=== PATIENT | female | born 1990 | race African-American/Black ===

== ENCOUNTER 2017-11-27 13:03 | Emergency (ER) | payer OTHER, MEDICAID ==
[~2017-11-27] VITALS: Ht 157.5 cm; Wt 59.0 kg
[2017-11-27] MEDS ORDERED: ZOLOFT50 MG PO (13:24)
[2017-11-27] MEDS ORDERED: ZANTAC 150MG T150 MG PO (13:24)
[2017-11-27] MEDS ORDERED: MAGNESIUM OXID200 MG PO (13:24)
[2017-11-27] MEDS ORDERED: LIORESAL 10 MG10 MG PO (13:24)
[2017-11-27] MEDS ORDERED: MIRALAX17 GM PO (13:24)
[2017-11-27 13:49] LABS: ABSOLUTE BASOPHILS 0.1 thou/uL (0.0-0.2); ABSOLUTE EOSINOPHILS 0.5 thou/uL (0.0-0.7); ABSOLUTE LYMPHOCYTES 1.8 thou/uL (0.8-5.3); ABSOLUTE MONOCYTES 0.6 thou/uL (0.0-1.2); ABSOLUTE NEUTROPHILS 4.6 thou/uL (1.6-8.1); BASOPHILS 1.5 %; EOSINOPHILS 6.4 %; HEMATOCRIT 45.2 % (37.0-47.0); HEMOGLOBIN 15.3 gm/dL (12.0-15.0); LYMPHOCYTES 24.1 %; MCH 29.9 pg (26.0-34.0); MCHC 33.8 g/dL (28.0-37.0); MCV 88.5 fL (80.0-100.0); MONOCYTES 7.6 %; MPV 8.8 fl. (7.2-11.1); NUCLEATED RBCS 0 /100WBC; PLATELET COUNT* 266 thou/uL (150-400); POLYS 60.4 %; RBC 5.11 mil/uL (4.20-5.00); RDW-CV 14.1 % (10.5-14.5); WBC 7.7 thou/uL (4.0-11.0)
[2017-11-27 13:53] LABS: URINE BILIRUBIN NEGATIVE (Negative); URINE BLOOD NEGATIVE (Negative); URINE CLARITY CLEAR; URINE COLOR YELLOW; URINE GLUCOSE-RANDOM NEGATIVE (Negative); URINE KETONES NEGATIVE (Negative); URINE LEUKOCYTES NEGATIVE (Negative); URINE NITRITE NEGATIVE (Negative); URINE PROTEIN NEGATIVE (Negative); URINE SPECIFIC GRAVITY <= 1.005 (1.005-1.030); URINE UROBILINOGEN 0.2 E.U./dl (0.2-1.0)
[2017-11-27 13:57] LABS: CALCIUM 9.4 mg/dL (8.5-10.1); CREATININE 0.7 mg/dL (0.6-1.3); POTASSIUM 4.6 mmol/L (3.5-5.1)
[2017-11-27 14:01] LABS: ALBUMIN 4.6 g/dL (3.4-5.0); TOTAL BILIRUBIN 0.3 mg/dL (<0.1-1.0); TOTAL PROTEIN 8.9 g/dL (6.4-8.2)
[2017-11-27] MEDS ORDERED: PHENERGAN 25 MG25 M1 PO (14:06)
[2017-11-27 15:22] VITALS: BP 119/80
== END 2017-11-27 15:23 | disposition home or self-care (01) ==
LOC: M.ERS 13:03
PROVIDERS: Nurse Practitioner Family
DX: G43.909 Migraine, unspecified, not intractable, without status migrainosus (principal); R10.9 Unspecified abdominal pain; K21.9 Gastro-esophageal reflux disease without esophagitis; J45.909 Unspecified asthma, uncomplicated; F32.9 Major depressive disorder, single episode, unspecified; F41.9 Anxiety disorder, unspecified

== ENCOUNTER 2017-12-17 21:53 | Emergency (ER) | payer OTHER, MEDICAID ==
[~2017-12-17] VITALS: Ht 157.5 cm; Wt 63.5 kg
[~2017-12-17 21:53] MED LIST: LIORESAL 10 MG10 MG PO; MAGNESIUM OXID200 MG PO; MIRALAX17 GM PO; PHENERGAN 25 MG25 M1 PO; ZANTAC 150MG T150 MG PO; ZOLOFT50 MG PO
[2017-12-17] MEDS ORDERED: VENTOLIN HFA 1818 GM (22:01)
[2017-12-17] MEDS ORDERED: BUTALB-APAP-CA1 EACH PO (22:42)
[2017-12-17] MEDS ORDERED: PENICILLIN V P500 MG PO (22:47)
[2017-12-17] MEDS ORDERED: HYDROCODON-ACE1 EAC7 PO (22:47)
[2017-12-17 23:06] VITALS: BP 138/82
== END 2017-12-17 23:08 | disposition home or self-care (01) ==
LOC: M.ERS 21:53
DX: G43.909 Migraine, unspecified, not intractable, without status migrainosus (principal); K08.89 Other specified disorders of teeth and supporting structures; F32.9 Major depressive disorder, single episode, unspecified; F41.9 Anxiety disorder, unspecified; J45.909 Unspecified asthma, uncomplicated; K21.9 Gastro-esophageal reflux disease without esophagitis

== ENCOUNTER 2018-03-11 15:03 | Emergency (ER) | payer OTHER ==
[~2018-03-11] VITALS: Ht 165.1 cm; Wt 65.8 kg
[~2018-03-11 15:03] MED LIST changes: +BUTALB-APAP-CA1 EACH PO; +HYDROCODON-ACE1 EAC7 PO; +PENICILLIN V P500 MG PO; +VENTOLIN HFA 1818 GM
[2018-03-11 17:05] VITALS: BP 130/88
== END 2018-03-11 17:06 | disposition home or self-care (01) ==
LOC: M.ERS 15:03
DX: G43.909 Migraine, unspecified, not intractable, without status migrainosus (principal); K21.9 Gastro-esophageal reflux disease without esophagitis; J45.909 Unspecified asthma, uncomplicated; F32.9 Major depressive disorder, single episode, unspecified; F41.9 Anxiety disorder, unspecified; F17.200 Nicotine dependence, unspecified, uncomplicated

== ENCOUNTER 2018-03-30 18:42 | Emergency (ER) | payer OTHER ==
[~2018-03-30] VITALS: Ht 157.5 cm; Wt 63.5 kg
[2018-03-30] MEDS ORDERED: MIRALAX17 GM PO (18:57)
[2018-03-30] MEDS ORDERED: ZANTAC 150MG T150 MG PO (18:57)
[2018-03-30] MEDS ORDERED: NASONEX17 GM NASAL (18:58)
[2018-03-30] MEDS ORDERED: ZOLOFT50 MG PO (18:58)
[2018-03-30] MEDS ORDERED: ACCUNEB SO1.25 MG/1 INH (18:58)
[2018-03-30] MEDS ORDERED: MAGNESIUM27 MG PO (18:59)
[2018-03-30] MEDS ORDERED: MAXALT10 MG PO (19:01)
[2018-03-30] MEDS ORDERED: PRENATAL COMPL1 EACH PO (19:34)
[2018-03-30] MEDS ORDERED: REGLAN 10 MG TA10 MG PO (19:34)
[2018-03-30] MEDS ORDERED: FLEXERIL PO (19:34)
[2018-03-30 19:59] VITALS: BP 127/78
== END 2018-03-30 19:59 | disposition home or self-care (01) ==
LOC: M.ERS 18:42
DX: O26.899 Other specified pregnancy related conditions, unspecified trimester (principal); Z3A.00 Weeks of gestation of pregnancy not specified; R51 Headache; O99.519 Diseases of the respiratory system complicating pregnancy, unspecified trimester; O99.340 Other mental disorders complicating pregnancy, unspecified trimester; J45.909 Unspecified asthma, uncomplicated; F41.9 Anxiety disorder, unspecified; F32.9 Major depressive disorder, single episode, unspecified; F17.200 Nicotine dependence, unspecified, uncomplicated

== ENCOUNTER 2018-04-14 17:06 | Emergency (ER) | payer MEDICAID ==
[~2018-04-14] VITALS: Ht 157.5 cm; Wt 77.1 kg
[~2018-04-14 17:06] MED LIST changes: +ACCUNEB SO1.25 MG/1 INH; +FLEXERIL PO; +MAGNESIUM27 MG PO; +MAXALT10 MG PO; +NASONEX17 GM NASAL; +PRENATAL COMPL1 EACH PO; +REGLAN 10 MG TA10 MG PO
[2018-04-14] MEDS ORDERED: BENADRYL25 MG PO (17:18)
[2018-04-14] MEDS ORDERED: PRENATAL PO (17:18)
[2018-04-14] MEDS ORDERED: TYLENOL325 MG PO (17:18)
[2018-04-14 17:27] LABS: URINE BILIRUBIN NEGATIVE (Negative); URINE BLOOD NEGATIVE (Negative); URINE CLARITY CLEAR; URINE COLOR YELLOW; URINE GLUCOSE-RANDOM NEGATIVE (Negative); URINE KETONES NEGATIVE (Negative); URINE LEUKOCYTES-REFLEX NEGATIVE (Negative); URINE NITRITE-REFLEX NEGATIVE (Negative); URINE PROTEIN NEGATIVE (Negative); URINE SPECIFIC GRAVITY <= 1.005 (1.005-1.030); URINE UROBILINOGEN 0.2 E.U./dl (0.2-1.0)
[2018-04-14 17:54] LABS: ABSOLUTE EOSINOPHILS 0.5 thou/uL (0.0-0.7); ABSOLUTE LYMPHOCYTES 2.3 thou/uL (0.8-5.3); ABSOLUTE MONOCYTES 0.8 thou/uL (0.0-1.2); BASOPHILS 0.5 %; EOSINOPHILS 4.5 %; HEMATOCRIT 34.8 % (37.0-47.0); HEMOGLOBIN 12.1 gm/dL (12.0-15.0); LYMPHOCYTES 21.6 %; MCH 30.7 pg (26.0-34.0); MCHC 34.7 g/dL (28.0-37.0); MCV 88.5 fL (80.0-100.0); MONOCYTES 7.6 %; MPV 7.8 fl. (7.2-11.1); NUCLEATED RBCS 0 /100WBC; PLATELET COUNT* 251 thou/uL (150-400); POLYS 65.8 %; RBC 3.94 mil/uL (4.20-5.00); RDW-CV 13.8 % (10.5-14.5); WBC 10.6 thou/uL (4.0-11.0)
[2018-04-14 18:08] LABS: ALBUMIN 3.6 g/dL (3.4-5.0); CALCIUM 9.2 mg/dL (8.5-10.1); CREATININE 0.9 mg/dL (0.6-1.3); POTASSIUM 3.8 mmol/L (3.5-5.1); TOTAL BILIRUBIN 0.1 mg/dL (<0.1-1.0); TOTAL PROTEIN 7.2 g/dL (6.4-8.2)
[2018-04-14 18:58] VITALS: BP 127/76
== END 2018-04-14 18:58 | disposition home or self-care (01) ==
LOC: M.ERS 17:06
PROVIDERS: Nurse Practitioner Family
DX: O23.511 Infections of cervix in pregnancy, first trimester (principal); O00.01 Abdominal pregnancy with intrauterine pregnancy; O99.611 Diseases of the digestive system complicating pregnancy, first trimester; O99.511 Diseases of the respiratory system complicating pregnancy, first trimester; O99.341 Other mental disorders complicating pregnancy, first trimester; O26.891 Other specified pregnancy related conditions, first trimester; G43.909 Migraine, unspecified, not intractable, without status migrainosus; Z3A.01 Less than 8 weeks gestation of pregnancy

== ENCOUNTER 2018-09-13 19:57 | Emergency (ER) | payer OTHER, MEDICAID ==
[~2018-09-13] VITALS: Ht 157.5 cm; Wt 70.8 kg
[~2018-09-13 19:57] MED LIST changes: +BENADRYL25 MG PO; +PRENATAL PO; +TYLENOL325 MG PO
[2018-09-13] MEDS ORDERED: NORCO 7.5-3251 EACH PO (20:15)
[2018-09-13] MEDS ORDERED: CLEOCIN HCL150 MG PO (20:15)
[2018-09-13 20:25] VITALS: BP 133/70
== END 2018-09-13 20:26 | disposition home or self-care (01) ==
LOC: M.ERS 19:57
DX: O26.892 Other specified pregnancy related conditions, second trimester (principal); L02.416 Cutaneous abscess of left lower limb; G43.909 Migraine, unspecified, not intractable, without status migrainosus; O99.342 Other mental disorders complicating pregnancy, second trimester; O99.612 Diseases of the digestive system complicating pregnancy, second trimester; Z3A.27 27 weeks gestation of pregnancy

== ENCOUNTER 2018-10-01 09:42 | Emergency (ER) | payer OTHER, MEDICAID ==
[~2018-10-01] VITALS: Ht 157.5 cm; Wt 71.2 kg
[~2018-10-01 09:42] MED LIST changes: +CLEOCIN HCL150 MG PO; +NORCO 7.5-3251 EACH PO
[2018-10-01 10:00] LABS: URINE BILIRUBIN NEGATIVE (Negative); URINE BLOOD NEGATIVE (Negative); URINE CLARITY CLEAR; URINE COLOR YELLOW; URINE GLUCOSE-RANDOM NEGATIVE (Negative); URINE KETONES NEGATIVE (Negative); URINE LEUKOCYTES-REFLEX NEGATIVE (Negative); URINE NITRITE-REFLEX NEGATIVE (Negative); URINE PROTEIN TRACE (Negative); URINE UROBILINOGEN 0.2 E.U./dl (0.2-1.0)
[2018-10-01] MEDS ORDERED: PHENERGAN 25 MG25 M1 PO (11:06)
[2018-10-01] MEDS ORDERED: CLEOCIN HCL300 MG PO (11:06)
[2018-10-01 11:29] VITALS: BP 127/85
== END 2018-10-01 11:29 | disposition home or self-care (01) ==
LOC: M.ERS 09:42
PROVIDERS: Family Medicine
DX: N76.2 Acute vulvitis (principal); L03.116 Cellulitis of left lower limb; L03.115 Cellulitis of right lower limb; K21.9 Gastro-esophageal reflux disease without esophagitis; J45.909 Unspecified asthma, uncomplicated; G43.909 Migraine, unspecified, not intractable, without status migrainosus; F32.9 Major depressive disorder, single episode, unspecified; F41.9 Anxiety disorder, unspecified

== ENCOUNTER 2018-12-06 19:15 | Emergency (ER) | payer OTHER, MEDICAID ==
[~2018-12-06] VITALS: Ht 157.5 cm; Wt 70.8 kg
[~2018-12-06 19:15] MED LIST changes: +CLEOCIN HCL300 MG PO
[2018-12-06 20:45] VITALS: BP 173/119
== END 2018-12-06 20:45 | disposition left against medical advice (07) ==
LOC: M.ERS 19:15
DX: Z53.21 Procedure and treatment not carried out due to patient leaving prior to being seen by health care provider (principal)

== ENCOUNTER 2018-12-08 14:51 | Emergency (ER) | payer OTHER, MEDICAID ==
[~2018-12-08] VITALS: Ht 157.5 cm; Wt 72.6 kg
[2018-12-08] MEDS ORDERED: PROAIR HFA8.5 GM INH (15:02)
[2018-12-08] MEDS ORDERED: ZANTAC 150MG T150 M1 PO (15:02)
[2018-12-08] MEDS ORDERED: MIRALAX119 GM PO (15:02)
[2018-12-08] MEDS ORDERED: COLACE100 MG PO (15:02)
[2018-12-08] MEDS ORDERED: ZOLOFT100 MG PO (15:03)
[2018-12-08] MEDS ORDERED: CLARITIN10 M3 PO (15:03)
[2018-12-08] MEDS ORDERED: BUTALB-APAP-CA1 EACH PO (15:03)
[2018-12-08] MEDS ORDERED: FLEXERIL PO (15:04)
[2018-12-08] MEDS ORDERED: VISTARIL 25 MG25 M1 PO (15:04)
[2018-12-08 16:05] VITALS: BP 139/75
== END 2018-12-08 16:07 | disposition home or self-care (01) ==
LOC: M.ERS 14:51
DX: G43.909 Migraine, unspecified, not intractable, without status migrainosus (principal); K21.9 Gastro-esophageal reflux disease without esophagitis; F41.9 Anxiety disorder, unspecified; F32.9 Major depressive disorder, single episode, unspecified; J45.909 Unspecified asthma, uncomplicated; F17.210 Nicotine dependence, cigarettes, uncomplicated

== ENCOUNTER 2018-12-12 15:46 | Emergency (ER) | payer OTHER, MEDICAID ==
[~2018-12-12] VITALS: Ht 157.5 cm; Wt 63.5 kg
[~2018-12-12 15:46] MED LIST changes: +CLARITIN10 M3 PO; +COLACE100 MG PO; +MIRALAX119 GM PO; +PROAIR HFA8.5 GM INH; +VISTARIL 25 MG25 M1 PO; +ZANTAC 150MG T150 M1 PO; +ZOLOFT100 MG PO
[2018-12-12] MEDS ORDERED: ZANTAC 150MG T150 M1 PO (16:03)
[2018-12-12] MEDS ORDERED: ZOLOFT100 MG PO (16:04)
[2018-12-12 17:39] VITALS: BP 133/79
== END 2018-12-12 17:40 | disposition home or self-care (01) ==
LOC: M.ERS 15:46
DX: G43.909 Migraine, unspecified, not intractable, without status migrainosus (principal); F41.9 Anxiety disorder, unspecified; F32.9 Major depressive disorder, single episode, unspecified; K21.9 Gastro-esophageal reflux disease without esophagitis; J45.909 Unspecified asthma, uncomplicated; F17.210 Nicotine dependence, cigarettes, uncomplicated

== ENCOUNTER 2019-01-28 16:15 | Emergency (ER) | payer OTHER, MEDICAID ==
[~2019-01-28] VITALS: Ht 157.5 cm; Wt 66.7 kg
[2019-01-28 17:00] LABS: INFLUENZA A ANTIGEN Negative (Negative)
[2019-01-28] MEDS ORDERED: NABUMETONE 750750 M1 PO (17:29)
[2019-01-28] MEDS ORDERED: TAMIFLU75 MG PO (17:29)
[2019-01-28] MEDS ORDERED: ONDANSETRON HCL4 M2 PO (17:29)
[2019-01-28] MEDS ORDERED: TYLENOL WITH CO1 TA1 PO (18:38)
[2019-01-28 18:52] VITALS: BP 148/85
== END 2019-01-28 18:53 | disposition home or self-care (01) ==
LOC: M.ERS 16:15
PROVIDERS: Nurse Practitioner Family
DX: J10.1 Influenza due to other identified influenza virus with other respiratory manifestations (principal); K21.9 Gastro-esophageal reflux disease without esophagitis; J45.909 Unspecified asthma, uncomplicated; G43.909 Migraine, unspecified, not intractable, without status migrainosus; F32.9 Major depressive disorder, single episode, unspecified; F41.9 Anxiety disorder, unspecified